=== PATIENT | female | born 1945 | race Caucasian/White ===

== ENCOUNTER → 2016-12-01 16:25 | Outpatient (CLI) | payer MEDICARE, OTHER ==
[2015-01-10 13:05] VITALS: BMI 34.1
[~2016-12-01 16:25] MED LIST: ACETAMINOPHEN500 M1 PO; AMBIEN10 MG PO; AMBIEN5 MG PO; ASPIRIN EC81 MG PO; ATIVAN1 MG PO; DURAGESIC1 PATCH .1 TRANSDERM; HYDROCODONE-APA1 TAB PO; LEVOXYL50 MCG PO; LOPRESSOR25 MG PO; MOBIC7.5 MG PO; NEURONTIN 300300 MG PO; NORVASC5 MG PO; PRILOSEC20 MG PO; PRINIVIL20 MG PO; ULTRAM50 MG PO; USTELL PO; VAGIFEM10 MCG; ZESTORETIC 20-1 EACH PO; ZOFRAN4 MG PO; ZOLOFT50 MG PO
== END | disposition home or self-care (01) ==
LOC: D.MAMMO 13:30
DX: Z12.31 Encounter for screening mammogram for malignant neoplasm of breast (principal)

== ENCOUNTER 2017-03-06 08:21 | Emergency (ER) | payer MEDICARE, OTHER ==
[2015-01-10 13:05] VITALS: BMI 34.1
[2017-03-06 08:53] LABS: APPEARANCE HAZY (CLEAR); COLOR ORANGE (YELLOW)
[2017-03-06 08:54] LABS: BACTERIA FEW /hpf (NONE SEEN); EPITHELIAL CELLS 0-5 /hpf (0-5)
== END 2017-03-06 09:10 | disposition home or self-care (01) ==
LOC: D.ER 08:21
PROVIDERS: Family Medicine
DX: N39.0 Urinary tract infection, site not specified (principal); I10 Essential (primary) hypertension

== ENCOUNTER → 2017-03-25 07:06 | Outpatient (CLI) | payer MEDICARE, OTHER ==
[2015-01-10 13:05] VITALS: BMI 34.1
== END | disposition home or self-care (01) ==
LOC: D.US 07:06
DX: E04.1 Nontoxic single thyroid nodule (principal)

== ENCOUNTER → 2017-05-10 06:00 | Outpatient (CLI) | payer MEDICARE, OTHER ==
[2015-01-10 13:05] VITALS: BMI 34.1
[2017-05-10 06:09] LABS: CREATININE - SERUM 0.7 mg/dL (0.6-1.3)
== END ==
LOC: D.LAB 05-09 11:18
PROVIDERS: Neurological Surgery
DX: Z01.812 Encounter for preprocedural laboratory examination (principal)

== ENCOUNTER → 2017-05-31 16:07 | Outpatient (CLI) | payer MEDICARE, OTHER ==
[2015-01-10 13:05] VITALS: BMI 34.1
== END | disposition home or self-care (01) ==
LOC: D.MAMMO 13:00
DX: N60.02 Solitary cyst of left breast (principal)

== ENCOUNTER → 2017-06-02 16:13 | Outpatient (CLI) | payer MEDICARE, OTHER ==
[2015-01-10 13:05] VITALS: BMI 34.1
[2017-06-02 16:28] LABS: BASOPHILS 0.5 % (0-2); EOSINOPHILS 1.9 % (0-7); HEMATOCRIT 37.8 % (36.0-48.0); HEMOGLOBIN 11.9 g/dL (12-16); IMMATURE GRANULOCYTES 0.2 % (0-5); LYMPHOCYTES 19.7 % (15-50); MCH 26.7 pg (26.0-34.0); MCHC 31.5 g/dL (31.0-37.0); MCV 84.9 fL (80.0-100.0); MEAN PLATELET VOLUME 11.9 fL (7.4-10.4); MONOCYTES 7.2 % (2-11); NEUTROPHILS 70.5 % (40-80); PLATELET COUNT 196 10x3/uL (130-400); RBC 4.45 10x6/uL (4.00-5.40); RDW 14.9 % (11.5-14.5); WBC 5.9 10x3/uL (4.8-10.8)
[2017-06-02 17:34] LABS: ERYTHROCYTE SEDIMENTATION RATE 12 mm/hr (0-30)
== END | disposition home or self-care (01) ==
LOC: D.LABREF 16:13
PROVIDERS: Orthopaedic Surgery
DX: M17.0 Bilateral primary osteoarthritis of knee (principal)

== ENCOUNTER → 2017-08-26 10:15 | Outpatient (CLI) | payer MEDICARE, OTHER ==
[2015-01-10 13:05] VITALS: BMI 34.1
== END | disposition home or self-care (01) ==
LOC: D.US 10:15
DX: R22.1 Localized swelling, mass and lump, neck (principal)

== ENCOUNTER → 2017-11-11 10:46 | Outpatient (CLI) | payer MEDICARE, OTHER ==
[2015-01-10 13:05] VITALS: BMI 34.1
== END | disposition home or self-care (01) ==
LOC: D.MRI 10:46
DX: S12.401A Unspecified nondisplaced fracture of fifth cervical vertebra, initial encounter for closed fracture (principal); X58.XXXA Exposure to other specified factors, initial encounter; Y93.89 Activity, other specified; Y92.89 Other specified places as the place of occurrence of the external cause

== ENCOUNTER 2017-12-18 10:24 | Emergency (ER) | payer MEDICARE, OTHER ==
[2015-01-10 13:05] VITALS: BMI 34.1
[2017-12-18 11:01] LABS: APPEARANCE TURBID (CLEAR); BILIRUBIN NEGATIVE (NEGATIVE); COLOR YELLOW (YELLOW); GLUCOSE NEGATIVE (NEGATIVE); KETONE NEGATIVE (NEGATIVE); NITRITE NEGATIVE (NEGATIVE); PROTEIN TRACE mg/dL (NEGATIVE); UROBILINOGEN NORMAL (NORMAL)
[2017-12-18 11:06] LABS: BACTERIA MANY /hpf (NONE SEEN); EPITHELIAL CELLS OCC /hpf (0-5); WHITE CELLS - URINE >50 /hpf (0-5)
[2017-12-18 11:34] LABS: BASOPHILS 0.3 % (0-2); EOSINOPHILS 2.9 % (0-7); HEMATOCRIT 30.9 % (36.0-48.0); HEMOGLOBIN 9.6 g/dL (12-16); IMMATURE GRANULOCYTES 0.3 % (0-5); LYMPHOCYTES 16.2 % (15-50); MCH 26.3 pg (26.0-34.0); MCHC 31.1 g/dL (31.0-37.0); MCV 84.7 fL (80.0-100.0); MONOCYTES 6.2 % (2-11); NEUTROPHILS 74.1 % (40-80); RBC 3.65 10x6/uL (4.00-5.40); RDW 15.2 % (11.5-14.5); WBC 7.3 10x3/uL (4.8-10.8)
[2017-12-18 11:35] LABS: PLATELET COUNT 266 10x3/uL (130-400)
== END 2017-12-18 12:19 | disposition home or self-care (01) ==
LOC: D.ER 10:24
PROVIDERS: Family Medicine; Nurse Practitioner Family
DX: N39.0 Urinary tract infection, site not specified (principal)

== ENCOUNTER → 2018-05-10 14:10 | Outpatient (CLI) | payer MEDICARE, OTHER ==
[2015-01-10 13:05] VITALS: BMI 34.1
[~2018-05-10 14:10] MED LIST changes: +CARDURA4 MG PO; +IPRAT-ALBUT 0.5-3 ML UPD; +OMNICEF300 MG PO; +PEPCID40 MG PO; +PREDNISONE10 MG PO
== END | disposition home or self-care (01) ==
LOC: D.US 05-08 10:30
DX: E04.1 Nontoxic single thyroid nodule (principal)

== ENCOUNTER 2018-06-08 16:35 | Inpatient (IN) | payer MEDICARE, OTHER ==
[~2018-06-08] VITALS: Ht 152.4 cm; Wt 83.2 kg
--- NOTE | ~2018-06-08 | MORECARE ---
CASE MANAGEMENT DISCHARGE SUMMARY PATIENT: SAMIR GUADALUPE UNIT: [id number] ADM DATE: 06/08/18 AGE: 72 : 43 SEX: F ROOM/BED: D.2224 AUTHOR: AYLIN,DOC PHYSICIAN: REFERRING PHYSICIAN: MERLIN RAMACHANDRAN DO DATE OF SERVICE: 06/11/18 Discharge Plan Patient Name: SAMIR GUADALUPE Facility: [facility]:[place] : 1945 Planned Disposition: Home Anticipated Discharge Date: 06/11/18 Discharge Date: 06/11/2018 Expected LOS: 3 Initial Reviewer: [id number] Initial Review Date: 06/08/2018 Generated: 06/11/18 2:17 pm Comments DCP- Discharge Planning Updated by [id number]: Chayo Rojo on 06/11/18 12:[address] LATE ENTRY 0845 CM MET WITH THE PATIENT AT THE BEDSIDE. SHE IS PLANNING DISCHARGE TO HOME TODAY ABOUT 1230 THIS AFTERNOON. SHE IS RETURNING TO HOME W/ HER . SHE HAS TRANSPORTATION. SHE HAS 2 STEPS TO ENTER HER WHICH HAS A RAIL. PATIENT WAS INDEPENDENT PRIOR TO ADMISSION. SHE HAS A CANE AND A WALKER THAT SHE USES SOMETIMES. SHE HAS A HISTORY OF BACK SURGERY. SHE HAS A SHOWER CHAIR W/ GRAB BARS IN THE SHOWER. SHE HAS A NEBULIZER ORDERED BY DR RAMACHANDRAN. SHE HAS NO PREFERRED PROVIDER. DELIVERY TO HER ROOM OR HOME IS ACCEPTABLE. SHE DENIES ANY HOME HEALTH OR COMMUNITY SERVICE NEEDS. CM EXPLAINED HOW TO OBTAIN IF SHE SHOULD FIND AFTER DISCHARGE THAT SHE WANTS SERVICES. PATIENT DENIES ANY ADDITIONAL DME NEEDS AND STATED DECLINED COMMUNITY AND HOME HEALTH NEEDS. TC TO [facility] THIS AM. REC CB FROM [facility]. DISCUSSED NEBULIZER. FAXED MD ORDERS FACE SHEET AND DISCHARGE SUMMARY. NEBULIZER WILL BE DELIVERED TO PATIENT HOME BETWEEN 4 AND 5 PM TODAY. DCPIA - Discharge Planning Initial Assessment Updated by [email or web address]: Chayo Rojo on 06/11/18 1:06 pm * Is the patient Alert and Oriented? Yes * How many steps to enter\exit or inside your home? 2 steps w/ * PCP DR RAMACHANDRAN * Pharmacy [facility]. IT IS CLOSED ON TUESDAY THEREFORE WILL USE [email or web address] [address]. * Preadmission Environment Home with Family * ADLs Independent * Equipment Cane Walker * Other Equipment DENIES ANY ADDITIONAL DME * List name and contact numbers for known caregivers / representatives who currently or will assist patient after discharge: SHERWIN GUADALUPE- [facility] [phone] * Verbal permission to speak to the caregivers and representatives has been obtained from the patient. No * Community resources currently utilized None * Please name any agencies selected above. N/A * Additional services required to return to the preadmission environment? No * Can the patient safely return to the preadmission environment? Yes * Has this patient been hospitalized within the prior 30 days at any hospital? No Last DP export: 06/11/18 12:10 p Patient Name: SAMIR GUADALUPE Page 44015 at 1317 All edits/amendments must be made on the electronic document DICTATION DATE: 06/11/181316 STRINGED INSTRUMENT REPAIRER: KALPESH 06/11/18 1317 RPT#: [id number] DC DATE:06/11/18 STATUS: DIS IN [facility] [address] [place] [address] END OF REPORT
--- NOTE | ~2018-06-08 | MORECARE ---
CASE MANAGEMENT DISCHARGE SUMMARY PATIENT: SAMIR GUADALUPE UNIT: [id number] ADM DATE: 06/08/18 AGE: 72 : 43 SEX: F ROOM/BED: D.2224 AUTHOR: AYLIN,DOC PHYSICIAN: REFERRING PHYSICIAN: MERLIN RAMACHANDRAN DO DATE OF SERVICE: 06/12/18 Discharge Plan Patient Name: SAMIR GUADALUPE Facility: [facility]:[place] : 1945 Planned Disposition: Home Anticipated Discharge Date: 06/11/18 Discharge Date: 06/11/2018 Expected LOS: 3 Initial Reviewer: [email or web address] Initial Review Date: 06/08/2018 Generated: 06/12/18 5:48 pm Comments DCP- Discharge Planning Updated by [id number]: Chayo Rojo on 06/11/18 12:[address] LATE ENTRY 0845 CM MET WITH THE PATIENT AT THE BEDSIDE. SHE IS PLANNING DISCHARGE TO HOME TODAY ABOUT 1230 THIS AFTERNOON. SHE IS RETURNING TO HOME W/ HER . SHE HAS TRANSPORTATION. SHE HAS 2 STEPS TO ENTER HER WHICH HAS A RAIL. PATIENT WAS INDEPENDENT PRIOR TO ADMISSION. SHE HAS A CANE AND A WALKER THAT SHE USES SOMETIMES. SHE HAS A HISTORY OF BACK SURGERY. SHE HAS A SHOWER CHAIR W/ GRAB BARS IN THE SHOWER. SHE HAS A NEBULIZER ORDERED BY DR RAMACHANDRAN. SHE HAS NO PREFERRED PROVIDER. DELIVERY TO HER ROOM OR HOME IS ACCEPTABLE. SHE DENIES ANY HOME HEALTH OR COMMUNITY SERVICE NEEDS. CM EXPLAINED HOW TO OBTAIN IF SHE SHOULD FIND AFTER DISCHARGE THAT SHE WANTS SERVICES. PATIENT DENIES ANY ADDITIONAL DME NEEDS AND STATED DECLINED COMMUNITY AND HOME HEALTH NEEDS. TC TO [facility] THIS AM. REC CB FROM [facility]. DISCUSSED NEBULIZER. FAXED MD ORDERS FACE SHEET AND DISCHARGE SUMMARY. NEBULIZER WILL BE DELIVERED TO PATIENT HOME BETWEEN 4 AND 5 PM TODAY. DCPIA - Discharge Planning Initial Assessment Updated by [email or web address]: Chayo Rojo on 06/11/18 1:06 pm * Is the patient Alert and Oriented? Yes * How many steps to enter\exit or inside your home? 2 steps w/ * PCP DR RAMACHANDRAN * Pharmacy [facility]. IT IS CLOSED ON TUESDAY THEREFORE WILL USE [employer] [facility] [address]. * Preadmission Environment Home with Family * ADLs Independent * Equipment Cane Walker * Other Equipment DENIES ANY ADDITIONAL DME * List name and contact numbers for known caregivers / representatives who currently or will assist patient after discharge: SHERWIN GUADALUPE- - [phone] * Verbal permission to speak to the caregivers and representatives has been obtained from the patient. No * Community resources currently utilized None * Please name any agencies selected above. N/A * Additional services required to return to the preadmission environment? No * Can the patient safely return to the preadmission environment? Yes * Has this patient been hospitalized within the prior 30 days at any hospital? No Coverage Notice Reviewer: [id number] - Chayo Rojo Notice Issued Date-Time: 06/11/2018 9:23 Notice Type: IM Discharge Notice Notice Delivered To: Patient Relationship to Patient: Orthotist Prosthetist Name: Delivery Method: HAND - Hand Delivered Rosangela Days: Prior Verbal Notification: Recipient Understood Notice: Yes Recipient Signature: Yes Med Rec Note Co-signed by Attending: Coverage Notice Comment: DISCUSSED DISCHARGE IMM. PATIENT READ INFORMATION NOTICE. SHE HAD NO QUESTIONS. STATED SHE IS READY TO GO HOME. SIGNATURE OBTAINED. COPY TO THE PATIENT. SIGNED COPY TO HARD COVER CHART. Last DP export: 06/11/18 12:17 p Patient Name: SAMIR GUADALUPE Page 49341 at 1648 All edits/amendments must be made on the electronic document DICTATION DATE: 06/12/181647 SPEECH LANGUAGE PATHOLOGIST PRN: KALPESH 06/12/181647 RPT#: [id number] DC DATE:06/11/18 STATUS: DIS IN [facility] [address] [place] [address] END OF REPORT
--- NOTE | ~2018-06-08 | MORECARE ---
CASE MANAGEMENT DISCHARGE SUMMARY PATIENT: SAMIR GUADALUPE UNIT: [id number] ADM DATE: 06/08/18 AGE: 72 : 41 SEX: F ROOM/BED: D.2224 AUTHOR: MYRNA VIERA PHYSICIAN: REFERRING PHYSICIAN: MERLIN RAMACHANDRAN DO DATE OF SERVICE: 06/11/18 Discharge Plan Patient Name: SAMIR GUADALUPE Facility: [facility]:[place] : 1945 Planned Disposition: Home Anticipated Discharge Date: 06/11/18 Discharge Date: 06/11/2018 Expected LOS: 3 Initial Reviewer: [id number] Initial Review Date: 06/08/2018 Generated: 06/11/18 2:10 pm DCPIA - Discharge Planning Initial Assessment Updated by [id number]: Chayo Rojo on 06/11/18 1:06 pm * Is the patient Alert and Oriented? Yes * How many steps to enter\exit or inside your home? 2 steps w/ * PCP DR RAMACHANDRAN * Pharmacy [facility]. IT IS CLOSED ON TUESDAY THEREFORE WILL USE [facility] [address]. * Preadmission Environment Home with Family * ADLs Independent * Equipment Cane Walker * Other Equipment DENIES ANY ADDITIONAL DME * List name and contact numbers for known caregivers / representatives who currently or will assist patient after discharge: SHERWIN GUADALUPE- [facility]- [phone] * Verbal permission to speak to the caregivers and representatives has been obtained from the patient. No * Community resources currently utilized None * Please name any agencies selected above. N/A * Additional services required to return to the preadmission environment? No * Can the patient safely return to the preadmission environment? Yes * Has this patient been hospitalized within the prior 30 days at any hospital? No Last DP export: 06/11/18 12:03 p Patient Name: SAMIR GUADALUPE Page 55875 at 1310 All edits/amendments must be made on the electronic document DICTATION DATE: 06/11/18 1310 PERMIT TECHNICIAN: KALPESH 06/11/18 1310 RPT#: [id number] DC DATE:06/11/18 STATUS: DIS IN [facility] [address] [place] [address] END OF REPORT
--- NOTE | ~2018-06-08 | MORECARE ---
CASE MANAGEMENT DISCHARGE SUMMARY PATIENT: SAMIR GUADALUPE UNIT: [id number] ADM DATE: 06/08/18 AGE: 72 : 43 SEX: F ROOM/BED: D.2224 AUTHOR: MYRNA VIERA PHYSICIAN: REFERRING PHYSICIAN: MERLIN RAMACHANDRAN DO DATE OF SERVICE: 06/11/18 Discharge Plan Patient Name: SAMIR GUADALUPE Facility: [facility]:[place] : 1945 Planned Disposition: Home Anticipated Discharge Date: 06/11/18 Discharge Date: Expected LOS: 3 Initial Reviewer: [email or web address] Initial Review Date: 06/08/2018 Generated: 06/11/18 2:03 pm Patient Name: SAMIR GUADALUPE Page 83252 at 1304 All edits/amendments must be made on the electronic document DICTATION DATE: 06/11/18 1303 PSYCHOLOGY DEPARTMENT CHAIR: KALPESH 06/11/18 1303 RPT#: [id number] DC DATE: STATUS: ADM IN [facility] [address] [place] [address] END OF REPORT
[~2018-06-08 16:35] MED LIST changes: -CARDURA4 MG PO; -IPRAT-ALBUT 0.5-3 ML UPD; -OMNICEF300 MG PO; -PEPCID40 MG PO; -PREDNISONE10 MG PO
[2018-06-08 17:21] LABS: BASOPHILS 0.2 % (0-2); EOSINOPHILS 0.2 % (0-7); HEMATOCRIT 36.2 % (36.0-48.0); HEMOGLOBIN 11.6 g/dL (12-16); IMMATURE GRANULOCYTES 0.2 % (0-5); LYMPHOCYTES 36.5 % (15-50); MCH 26.5 pg (26.0-34.0); MCV 82.6 fL (80.0-100.0); MEAN PLATELET VOLUME 10.8 fL (7.4-10.4); MONOCYTES 7.6 % (2-11); NEUTROPHILS 55.3 % (40-80); RBC 4.38 10x6/uL (4.00-5.40); RDW 14.5 % (11.5-14.5); WBC 6.5 10x3/uL (4.8-10.8)
[2018-06-08 17:22] LABS: PLATELET COUNT 173 10x3/uL (130-400)
[2018-06-08 17:39] LABS: ALBUMIN 3.6 g/dL (3.4-5.0); ANION GAP 14.7 mmol/L (8-16); BILIRUBIN - TOTAL 0.19 mg/dL (0.2-1.3); CALCIUM 9.2 mg/dL (8.5-10.1); CARBON DIOXIDE 27.8 mmol/L (21.0-32.0); CREATININE - SERUM 0.9 mg/dL (0.6-1.3); POTASSIUM - SERUM 3.5 mmol/L (3.5-5.1); PROTEIN - SERUM 7.4 g/dL (6.4-8.2)
[2018-06-08 18:44] VITALS: BP 102/71; Ht 152.4 cm; Wt 83.2 kg
[2018-06-08 19:53] LABS: APPEARANCE CLEAR (CLEAR); BILIRUBIN NEGATIVE (NEGATIVE); COLOR YELLOW (YELLOW); GLUCOSE NEGATIVE (NEGATIVE); KETONE NEGATIVE (NEGATIVE); NITRITE NEGATIVE (NEGATIVE); PROTEIN TRACE mg/dL (NEGATIVE); UROBILINOGEN NORMAL (NORMAL)
[2018-06-08 19:55] LABS: BACTERIA FEW /hpf (NONE SEEN); EPITHELIAL CELLS 0-5 /hpf (0-5); RED CELLS - URINE 0-5 /hpf (0-5)
[2018-06-08 21:35] VITALS: BP 153/98
[2018-06-09 04:44] LABS: BASOPHILS 0.4 % (0-2); EOSINOPHILS 0.6 % (0-7); HEMATOCRIT 32.3 % (36.0-48.0); HEMOGLOBIN 10.1 g/dL (12-16); LYMPHOCYTES 36.3 % (15-50); MCH 25.9 pg (26.0-34.0); MCHC 31.3 g/dL (31.0-37.0); MCV 82.8 fL (80.0-100.0); MEAN PLATELET VOLUME 11.4 fL (7.4-10.4); MONOCYTES 9.8 % (2-11); NEUTROPHILS 52.9 % (40-80); PLATELET COUNT 173 10x3/uL (130-400); RDW 14.4 % (11.5-14.5); WBC 4.9 10x3/uL (4.8-10.8)
[2018-06-09 05:11] LABS: ALKALINE PHOSPHATASE 50 U/L (46-116); ALT (SGPT) 16 U/L (10-68); CALC OSMOLALITY 289 mosm/kg (275-300); CALCIUM 8.8 mg/dL (8.5-10.1); CARBON DIOXIDE 28.8 mmol/L (21.0-32.0); CHLORIDE - SERUM 107 mmol/L (98-107); GLUCOSE 113 mg/dL (74-106); POTASSIUM - SERUM 3.8 mmol/L (3.5-5.1); PROTEIN - SERUM 6.2 g/dL (6.4-8.2); SODIUM 143 mmol/L (136-145); UREA NITROGEN 23 mg/dL (7-18)
[2018-06-09 05:12] VITALS: BP 134/95
[2018-06-09 05:12] LABS: BILIRUBIN - TOTAL 0.08 mg/dL (0.2-1.3); CREATININE - SERUM 0.6 mg/dL (0.6-1.3); eGFR NON AFRICAN AMERICAN > 90 mL/min (90-120)
[2018-06-09 08:47] VITALS: BP 185/69
[2018-06-09] MEDS ORDERED: CARDURA4 MG PO (10:20)
[2018-06-09] MEDS ORDERED: PEPCID40 MG PO (10:22)
[2018-06-09 12:46] VITALS: BP 176/83
[2018-06-09 16:27] VITALS: BP 147/72
[2018-06-09 21:26] VITALS: BP 118/51
[2018-06-10 04:51] VITALS: BP 179/78
[2018-06-10 06:00] LABS: BASOPHILS 0.2 % (0-2); EOSINOPHILS 2.8 % (0-7); HEMATOCRIT 31.7 % (36.0-48.0); MCHC 31.5 g/dL (31.0-37.0); MCV 82.6 fL (80.0-100.0); MONOCYTES 8.5 % (2-11); NEUTROPHILS 51.5 % (40-80); PLATELET COUNT 165 10x3/uL (130-400); RBC 3.84 10x6/uL (4.00-5.40); RDW 14.4 % (11.5-14.5); WBC 4.2 10x3/uL (4.8-10.8)
[2018-06-10 06:29] LABS: ALBUMIN 2.8 g/dL (3.4-5.0); ALKALINE PHOSPHATASE 45 U/L (46-116); ALT (SGPT) 15 U/L (10-68); CALC OSMOLALITY 292 mosm/kg (275-300); CALCIUM 8.6 mg/dL (8.5-10.1); CARBON DIOXIDE 27.6 mmol/L (21.0-32.0); CHLORIDE - SERUM 110 mmol/L (98-107); CREATININE - SERUM 0.6 mg/dL (0.6-1.3); GLUCOSE 96 mg/dL (74-106); POTASSIUM - SERUM 4.2 mmol/L (3.5-5.1); PROTEIN - SERUM 5.8 g/dL (6.4-8.2); SODIUM 145 mmol/L (136-145); UREA NITROGEN 24 mg/dL (7-18); eGFR NON AFRICAN AMERICAN > 90 mL/min (90-120)
[2018-06-10 09:35] VITALS: BP 180/75
[2018-06-10 16:30] VITALS: BP 134/65
[2018-06-10 20:39] VITALS: BP 174/71
[2018-06-11 00:20] VITALS: BP 183/74
[2018-06-11 05:02] VITALS: BP 155/77
[2018-06-11 06:40] LABS: BASOPHILS 0 % (0-2); EOSINOPHILS 0 % (0-7); HEMOGLOBIN 11.1 g/dL (12-16); IMMATURE GRANULOCYTES 0.5 % (0-5); LYMPHOCYTES 14.3 % (15-50); MCH 26.1 pg (26.0-34.0); MCHC 31.7 g/dL (31.0-37.0); MCV 82.2 fL (80.0-100.0); MEAN PLATELET VOLUME 11.8 fL (7.4-10.4); MONOCYTES 4.8 % (2-11); NEUTROPHILS 80.4 % (40-80); PLATELET COUNT 183 10x3/uL (130-400); RBC 4.26 10x6/uL (4.00-5.40); RDW 14.3 % (11.5-14.5)
[2018-06-11 06:46] LABS: WBC 6.1 10x3/uL (4.8-10.8)
[2018-06-11 07:03] LABS: ALBUMIN 2.9 g/dL (3.4-5.0); ALKALINE PHOSPHATASE 52 U/L (46-116); ALT (SGPT) 15 U/L (10-68); BILIRUBIN - TOTAL 0.17 mg/dL (0.2-1.3); CALC OSMOLALITY 286 mosm/kg (275-300); CALCIUM 9.3 mg/dL (8.5-10.1); CARBON DIOXIDE 28.2 mmol/L (21.0-32.0); CHLORIDE - SERUM 105 mmol/L (98-107); CREATININE - SERUM 0.6 mg/dL (0.6-1.3); GLUCOSE 119 mg/dL (74-106); POTASSIUM - SERUM 4.3 mmol/L (3.5-5.1); PROTEIN - SERUM 6.4 g/dL (6.4-8.2); SODIUM 142 mmol/L (136-145); UREA NITROGEN 22 mg/dL (7-18); eGFR NON AFRICAN AMERICAN > 90 mL/min (90-120)
[2018-06-11] MEDS ORDERED: OMNICEF300 MG PO (08:35)
[2018-06-11] MEDS ORDERED: PREDNISONE10 MG PO (08:36)
[2018-06-11] MEDS ORDERED: IPRAT-ALBUT 0.5-3 ML UPD (08:37)
[2018-06-11 09:01] VITALS: BP 136/66
== END 2018-06-11 13:06 | disposition home or self-care (01) | DRG 192 ==
LOC: D.MS 16:35
PROVIDERS: Family Medicine
DX: J44.1 Chronic obstructive pulmonary disease with (acute) exacerbation (principal); R53.1 Weakness; I10 Essential (primary) hypertension

== ENCOUNTER → 2018-08-15 13:46 | Outpatient (CLI) | payer MEDICARE, BC ==
[2018-06-08 18:44] VITALS: BMI 35.8
[~2018-08-15 13:46] MED LIST changes: +CARDURA4 MG PO; +IPRAT-ALBUT 0.5-3 ML UPD; +OMNICEF300 MG PO; +PEPCID40 MG PO; +PREDNISONE10 MG PO
== END | disposition home or self-care (01) ==
LOC: D.CT 13:30
DX: R05 Cough (principal)

== ENCOUNTER → 2018-08-24 16:32 | Outpatient (CLI) | payer MEDICARE, BC ==
[2018-06-08 18:44] VITALS: BMI 35.8
[2018-08-28 13:13] LABS: ANGIOTENSIN CONVERTING ENZYME < 15 U/L (14-82)
[2018-08-29 20:07] LABS: FUNGAL - ASP FLAVUS Negative (Neg:<1:1); FUNGAL - ASP NIGER Negative (Neg:<1:1); FUNGAL - ASPER FUMIGATUS Negative (Neg:<1:1)
== END | disposition home or self-care (01) ==
LOC: D.LABREF 16:32
PROVIDERS: Internal Medicine Pulmonary Disease
DX: R91.1 Solitary pulmonary nodule (principal)

== ENCOUNTER → 2018-09-15 20:00 | Outpatient (CLI) | payer MEDICARE, BC ==
[2018-06-08 18:44] VITALS: BMI 35.8
== END | disposition home or self-care (01) ==
LOC: D.MAMMO 09-01 14:30
DX: Z12.31 Encounter for screening mammogram for malignant neoplasm of breast (principal)

== ENCOUNTER → 2018-12-08 12:17 | Outpatient (CLI) | payer MEDICARE, BC ==
[2018-06-08 18:44] VITALS: BMI 35.8
== END | disposition home or self-care (01) ==
LOC: D.RT 11-09 10:00 → D.CT 11-09 11:00 → D.RT 12:17
PROVIDERS: ATTEND Internal Medicine Pulmonary Disease
DX: J44.9 Chronic obstructive pulmonary disease, unspecified (principal)

== ENCOUNTER → 2018-12-27 12:32 | Outpatient (CLI) | payer MEDICARE, BC ==
[2018-06-08 18:44] VITALS: BMI 35.8
== END | disposition home or self-care (01) ==
LOC: D.US 12-26 15:00
PROVIDERS: ATTEND Family Medicine
DX: E04.1 Nontoxic single thyroid nodule (principal)

== ENCOUNTER → 2019-05-15 13:05 | Outpatient (CLI) | payer MEDICARE, BC ==
[2018-06-08 18:44] VITALS: BMI 35.8
== END | disposition home or self-care (01) ==
LOC: D.CT 04-12 09:00
PROVIDERS: ATTEND Internal Medicine Pulmonary Disease
DX: E04.1 Nontoxic single thyroid nodule (principal)

== ENCOUNTER 2019-08-11 15:32 | Observation (INO) | payer MEDICARE, BC ==
[~2019-08-11] VITALS: Ht 152.4 cm; Wt 81.8 kg
[2019-08-11] MEDS ORDERED: PERCOCET 7.5/321 TAB PO (15:57)
[2019-08-11 16:45] VITALS: BP 151/56
[2019-08-11 16:49] VITALS: BP 151/59; Ht 152.4 cm; Wt 81.8 kg
[2019-08-11 18:55] LABS: BASOPHILS 0.2 % (0-2); EOSINOPHILS 5.6 % (0-7); HEMATOCRIT 28.6 % (36.0-48.0); HEMOGLOBIN 8.8 g/dL (12-16); LYMPHOCYTES 19.6 % (15-50); MCH 25.7 pg (26.0-34.0); MCHC 30.8 g/dL (31.0-37.0); MCV 83.6 fL (80.0-100.0); MEAN PLATELET VOLUME 9.9 fL (7.4-10.4); NEUTROPHILS 64.6 % (40-80); PLATELET COUNT 238 10x3/uL (130-400); RBC 3.42 10x6/uL (4.00-5.40); RDW 15.6 % (11.5-14.5); WBC 5.7 10x3/uL (4.8-10.8)
[2019-08-11 19:02] LABS: INR 1.02 (0.85-1.17); PROTIME 12.9 SECONDS (11.6-15.0)
--- NOTE | 2019-08-11 19:02 | NUR ---
PATIENT RESTING IN BED AND DENIES NEEDS AT THIS TIME. BED IN LOWEST POSITION AND CALL LIGHT WITHIN REACH. PATIENT DENIES NEEDS AT THIS TIME. BED IN LOWEST POSITION AND CALL LIGHT WITHIN REACH. ENCOURAGED THE PATIENT TO CALL IF SHE HAS NEEDS. WILL CONTINUE TO MONITOR.
[2019-08-11 19:03] LABS: APTT 27.5 SECONDS (22.8-39.4)
[2019-08-11 19:07] LABS: ALBUMIN 2.5 g/dL (3.4-5.0); ALKALINE PHOSPHATASE 53 U/L (46-116); ALT (SGPT) 15 U/L (10-68); CALC OSMOLALITY 288 mosm/kg (275-300); CALCIUM 8.3 mg/dL (8.5-10.1); CARBON DIOXIDE 31.9 mmol/L (21.0-32.0); CHLORIDE - SERUM 107 mmol/L (98-107); CREATININE - SERUM 0.7 mg/dL (0.6-1.3); GLUCOSE 95 mg/dL (74-106); MAGNESIUM - SERUM 2.2 mg/dL (1.8-2.4); POTASSIUM - SERUM 3.8 mmol/L (3.5-5.1); PROTEIN - SERUM 5.7 g/dL (6.4-8.2); SODIUM 144 mmol/L (136-145); UREA NITROGEN 17 mg/dL (7-18); eGFR NON AFRICAN AMERICAN 86 mL/min (90-120)
--- NOTE | 2019-08-11 19:19 | MORECARE ---
CASE MANAGEMENT DISCHARGE SUMMARY PATIENT: SAMIR GUADALUPE UNIT: [id number] ADM DATE: 08/11/19 AGE: 73 : 43 SEX: F ROOM/BED: D.2213 AUTHOR: MYRNA VIERA PHYSICIAN: REFERRING PHYSICIAN: MERLIN RAMACHANDRAN DO DATE OF SERVICE: 08/11/19 Discharge Plan Patient Name: SAMIR GUADALUPE [facility] : 1945 Planned Disposition: Inpatient Rehab Facility Anticipated Discharge Date: 08/12/19 Discharge Date: Expected LOS: 1 Initial Reviewer: [email or web address] Initial Review Date: 08/11/2019 Generated: 08/11/19 8:18 pm Patient Name: SAMIR GUADALUPE Page 14314 at 1919 All edits/amendments must be made on the electronic document DICTATION DATE: 08/11/191917 PHYSIOTHERAPIST'S ASSISTANT: KALPESH 08/11/191917 RPT#: [id number] DC DATE: STATUS: ADM IN [facility] [address] [place] [address] END OF REPORT
--- NOTE | 2019-08-11 19:25 | MORECARE ---
CASE MANAGEMENT DISCHARGE SUMMARY PATIENT: SAMIR FUENTES UNIT: [id number] ADM DATE: 08/11/19 AGE: 73 : 43 SEX: F ROOM/BED: D.2213 AUTHOR: MYRNA VIERA PHYSICIAN: REFERRING PHYSICIAN: MERLIN RAMACHANDRAN DO DATE OF SERVICE: 08/11/19 Discharge Plan Patient Name: SAMIR FUENTES Facility: [facility]:[place] : 1945 Planned Disposition: Inpatient Rehab Facility Anticipated Discharge Date: 08/12/19 Discharge Date: Expected LOS: 1 Initial Reviewer: [email or web address] Initial Review Date: 08/11/2019 Generated: 08/11/19 8:25 pm DCPIA - Discharge Planning Initial Assessment Updated by [email or web address]: Kennedi Keita on 08/11/19 7:21 pm * Is the patient Alert and Oriented? Yes * How many steps to enter\exit or inside your home? two * PCP Dr. Ramachandran * Pharmacy [facility] * Preadmission Environment Home with Family * ADLs Partial Dependent * Partial ADLs (Assistance needed) Ambulation Bathing Dressing Transfers * Equipment Bedside Commode Nebulizer Rolling Walker Wheelchair * List name and contact numbers for known caregivers / representatives who currently or will assist patient after discharge: Mike Fuentes - [facility] - [phone] * Verbal permission to speak to the caregivers and representatives has been obtained from the patient. Yes * Community resources currently utilized Home Health * Please name any agencies selected above. [facility] * Additional services required to return to the preadmission environment? Yes * Can the patient safely return to the preadmission environment? No * Has this patient been hospitalized within the prior 30 days at any hospital? Yes Last DP export: 08/11/19 6:19 pm Patient Name: SAMIR FUENTES Page 32012 at 1924 All edits/amendments must be made on the electronic document DICTATION DATE: 08/11/191924 FARMWORKER TURKEY FARM: KALPESH 08/11/191924 RPT#: [id number] DC DATE: STATUS: ADM IN [facility] [address] [place] [address] END OF REPORT
[2019-08-11 20:00] VITALS: BP 140/57
--- NOTE | 2019-08-11 20:46 | NUR ---
PATIENT RESTING IN BED WITH DAUGHTER AT BEDSIDE. REVIEWED AND ADMINISTERED PATIENT'S MEDS PER ORDERS. PATIENT ALSO REQUESTED A PAIN PILL AT THIS TIME. PATIENT C/O BRACE MAKING HER LEG "HOT". PATIENT'S RANDI BANDAGE WAS ALSO SOILED AND STRETCHED OUT. I PLACED A NEW RANDI BANDAGE AND GAVE THE PATIENT A FRESH ICE PACK. PATIENT DENIES OTHER NEEDS AT THIS TIME.
[2019-08-11 23:30] VITALS: BP 146/52
[2019-08-12 04:00] VITALS: BP 137/58
[2019-08-12 05:25] LABS: BASOPHILS 0.4 % (0-2); EOSINOPHILS 5.2 % (0-7); HEMATOCRIT 26.3 % (36.0-48.0); HEMOGLOBIN 8.1 g/dL (12-16); IMMATURE GRANULOCYTES 0.2 % (0-5); LYMPHOCYTES 22.6 % (15-50); MCH 25.6 pg (26.0-34.0); MCHC 30.8 g/dL (31.0-37.0); MCV 83.2 fL (80.0-100.0); MEAN PLATELET VOLUME 10.2 fL (7.4-10.4); MONOCYTES 8.4 % (2-11); NEUTROPHILS 63.2 % (40-80); PLATELET COUNT 237 10x3/uL (130-400); RBC 3.16 10x6/uL (4.00-5.40); RDW 15.6 % (11.5-14.5)
[2019-08-12 05:59] LABS: CALC OSMOLALITY 292 mosm/kg (275-300); CALCIUM 8.2 mg/dL (8.5-10.1); CHLORIDE - SERUM 111 mmol/L (98-107); CREATININE - SERUM 0.5 mg/dL (0.6-1.3); GLUCOSE 102 mg/dL (74-106); MAGNESIUM - SERUM 2.3 mg/dL (1.8-2.4); POTASSIUM - SERUM 3.7 mmol/L (3.5-5.1); SODIUM 146 mmol/L (136-145); UREA NITROGEN 17 mg/dL (7-18); eGFR NON AFRICAN AMERICAN > 90 mL/min (90-120)
--- NOTE | 2019-08-12 09:00 | NUR ---
ALERT AND ORIENTED X4 WITH ASSSIT X1 TO BSC WITH SPLINT NOTED TO LLE. STOOL SPECEMIN OBTAINED WITH HYDROCODONE GIVEN FOR PAIN #8. ENCOURAGED INCENTIVE SPIROMETER WITH LUNGS CTA AND ABDOMEN SOFT WITH BS NOTED. PT EWARS SCD'S WHLE IN BED. DRESSING DRY AND INTACT TO LEFT KNEE WITH SPLINT. IV TO RT. WRIST INTACT WITH NO S/S OF INFECTION NOTED. ENCOURAGED TO USE CALL LIGHT FOR ASSSIT.
[2019-08-12 09:37] VITALS: BP 148/56
--- NOTE | 2019-08-12 09:43 | NUR ---
REHAB PRESCREENING Rehab referral received and chart reviewed. PT/OT/ST has been ordered but not completed as of yet. Rehab will continue to follow this patient for work up and evaluations in order to assess admission criteria. Thank you for this referral! Eula Barnett, LOCOMOTIVE ELECTRICIAN Rehab PD
[2019-08-12 12:05] VITALS: BP 120/54
--- NOTE | 2019-08-12 14:36 | MORECARE ---
CASE MANAGEMENT DISCHARGE SUMMARY PATIENT: SAMIR FUENTES UNIT: [id number] ADM DATE: 08/11/19 AGE: 73 : 43 SEX: F ROOM/BED: D.2213 AUTHOR: MYRNA VIERA PHYSICIAN: REFERRING PHYSICIAN: MERLIN RAMACHANDRAN DO DATE OF SERVICE: 08/12/19 Discharge Plan Patient Name: SAMIR FUENTES Facility: [facility]:[place] : 1945 Planned Disposition: Inpatient Rehab Facility Anticipated Discharge Date: 08/12/19 Discharge Date: Expected LOS: 1 Initial Reviewer: [email or web address] Initial Review Date: 08/11/2019 Generated: 08/12/19 3:36 pm Comments DCP- Discharge Planning Updated by [email or web address]: Kennedi Keita on 08/12/19 1:[address] DC PLANNING: ACCEPTED TO REHAB FOR TODAY. CM SPOKE TO SUNITA WHO STATED PATIENT MEETS CRITERIA FOR ADMISSION. DR. MORALES HAS BEEN NOTIFIED AND WILLING TO ACCEPT PATIENT TODAY. CRISTIAN WILL BE COMING TO THE HOSPITAL TO COMPLETE THE SCREEN. ONCE HE IS FINISHED WITH THE SCREEN HE WILL CALL WITH A ROOM NUMBER. KENNEDI KEITA RN, CCM Appended by Kennedi Keita on 08/12/2019 14:34 SEISMIC PROSPECTING SUPERVISOR: CM NOTIFIED RANDI ANDRADE OF THE ACCEPTANCE AND REHAB ADMISSION FOR TODAY. DCP- Discharge Planning Updated by [email or web address]: Kennedi Keita on 08/11/19 6:[address] DC PLAN: GLOBE MOUNTER Inpatient rehab. ANTICIPATED DC NEEDS: Rehab. CM met with patient to complete initial dc planning assessment. CM educated patient on the CM role and verbal consent given by patient to complete assessment. CM verified patient's address, phone number, and emergency contact phone numbers. Patient lives at home with her . She reports she is POD4 left knee surgery. She had her surgery in [place]. She was discharged home with [facility]. The therapist made a visit and notified Dr. Ramachandran that the patient was not able to manage at home and so the patient was sent to the hospital for admission into the Rehab. She reports her is not able to left her. DAYA presented, explained, and signed by the patient for [facility] Re[facility] and [facility]. Signed form placed in chart and also left with patient. Sunita with [facility] stated she would evaluate the patient for admission on Tuesday. CM will continue to follow and will assist as needed with dc plans/needs. Kennedi Keita RN, JOSE DCPIA - Discharge Planning Initial Assessment Updated by [email or web address]: Kennedi Keita on 08/11/19 7:21 pm * Is the patient Alert and Oriented? Yes * How many steps to enter\exit or inside your home? two * PCP Dr. Ramachandran * Pharmacy [facility] * Preadmission Environment Home with Family * ADLs Partial Dependent * Partial ADLs (Assistance needed) Ambulation Bathing Dressing Transfers * Equipment Bedside Commode Nebulizer Rolling Walker Wheelchair * List name and contact numbers for known caregivers / representatives who currently or will assist patient after discharge: Mike Fuentes - [facility] - [phone] * Verbal permission to speak to the caregivers and representatives has been obtained from the patient. Yes * Community resources currently utilized Home Health * Please name any agencies selected above. [facility] * Additional services required to return to the preadmission environment? Yes * Can the patient safely return to the preadmission environment? No * Has this patient been hospitalized within the prior 30 days at any hospital? Yes Coverage Notice Reviewer: [id number] Cam Keita Notice Issued Date-Time: 08/11/2019 19:25 Notice Type: Patient Choice Letter Notice Delivered To: Patient Relationship to Patient: Housekeeping Associate Name: Delivery Method: HAND - Hand Delivered Rosangela Days: Prior Verbal Notification: Recipient Understood Notice: Yes Recipient Signature: Yes Med Rec Note Co-signed by Attending: Coverage Notice Comment: DAYA Signed for [facility] Inpatient Rehab and [facility] (Current provider). Reviewer: [email or web address] Cam Keita Notice Issued Date-Time: 08/11/2019 18:55 Notice Type: Medicare Outpatient Observation Notice Notice Delivered To: Patient Relationship to Patient: Housekeeping Associate Name: Delivery Method: HAND - Hand Delivered Rosangela Days: Prior Verbal Notification: Recipient Understood Notice: Yes Recipient Signature: Yes Med Rec Note Co-signed by Attending: Coverage Notice Comment: SURESH delivered, explained, signed by the patient, and placed in the chart. Signed form also left with patient. Kennedi Keita RN , CCM Last DP export: 08/11/19 6:25 pm Patient Name: Emiliana FUENTESMICHELLE Page 57237 at 1436 All edits/amendments must be made on the electronic document DICTATION DATE: 08/12/191435 TECHNICAL CUSTOMER SUPPORT SPECIALIST: KALPESH 08/12/191435 RPT#: [id number] DC DATE: STATUS: ADM IN [facility] [address] [place] [address] END OF REPORT
[2019-08-12 14:49] LABS: APPEARANCE CLEAR (CLEAR); BILIRUBIN NEGATIVE (NEGATIVE); COLOR YELLOW (YELLOW); GLUCOSE NEGATIVE (NEGATIVE); KETONE NEGATIVE (NEGATIVE); NITRITE NEGATIVE (NEGATIVE); PROTEIN NEGATIVE (NEGATIVE); UROBILINOGEN NORMAL (NORMAL)
[2019-08-12] MEDS ORDERED: PROTONIX40 MG PO (15:09)
[2019-08-12] MEDS ORDERED: HCTZ25 MG PO (15:09)
[2019-08-12] MEDS ORDERED: BAYER ASPIRIN325 MG PO (15:11)
--- NOTE | 2019-08-12 18:19 | NUR ---
PT DISCHARGED TO REHAB WITH REPORT CALLED TO TORSTEN ANDRADE AND STABLE AT TIME OF DEPARTURE VIA W/C.
--- NOTE | 2019-08-12 19:47 | MORECARE ---
CASE MANAGEMENT DISCHARGE SUMMARY PATIENT: SAMIR FUENTES UNIT: [id number] ADM DATE: 08/11/19 AGE: 73 : 43 SEX: F ROOM/BED: D.2213 AUTHOR: MYRNA VIERA PHYSICIAN: REFERRING PHYSICIAN: MERLIN RAMACHANDRAN DO DATE OF SERVICE: 08/12/19 Discharge Plan Patient Name: SAMIR FUENTES Facility: [facility]:[place] : 1945 Planned Disposition: Inpatient Rehab Facility Anticipated Discharge Date: 08/12/19 Discharge Date: 08/12/2019 Expected LOS: 1 Initial Reviewer: [email or web address] Initial Review Date: 08/11/2019 Generated: 08/12/19 8:46 pm Comments DCP- Discharge Planning Updated by [id number]: Kennedi Keita on 08/12/19 1:[address] DC PLANNING: ACCEPTED TO REHAB FOR TODAY. CM SPOKE TO SUNITA WHO STATED PATIENT MEETS CRITERIA FOR ADMISSION. DR. MORALES HAS BEEN NOTIFIED AND WILLING TO ACCEPT PATIENT TODAY. CRISTIAN WILL BE COMING TO THE HOSPITAL TO COMPLETE THE SCREEN. ONCE HE IS FINISHED WITH THE SCREEN HE WILL CALL WITH A ROOM NUMBER. KENNEDI KEITA RN, CCM Appended by Kennedi Keita on 08/12/2019 14:34 RECYCLE COORDINATOR: CM NOTIFIED RANDI ANDRADE OF THE ACCEPTANCE AND REHAB ADMISSION FOR TODAY. DCP- Discharge Planning Updated by [email or web address]: Kennedi Keita on 08/11/19 6:[address] DC PLAN: PLANT EQUIPMENT ENGINEER Inpatient rehab. ANTICIPATED DC NEEDS: Rehab. CM met with patient to complete initial dc planning assessment. CM educated patient on the CM role and verbal consent given by patient to complete assessment. CM verified patient's address, phone number, and emergency contact phone numbers. Patient lives at home with her . She reports she is POD4 left knee surgery. She had her surgery in [place]. She was discharged home with [facility]. The therapist made a visit and notified Dr. Ramachandran that the patient was not able to manage at home and so the patient was sent to the hospital for admission into the Rehab. She reports her is not able to left her. DAYA presented, explained, and signed by the patient for PLANT EQUIPMENT ENGINEER IN Rehab and [facility]. Signed form placed in chart and also left with patient. Sunita with [facility] stated she would evaluate the patient for admission on Tuesday. CM will continue to follow and will assist as needed with dc plans/needs. Kennedi Keita RN, CCM DCPIA - Discharge Planning Initial Assessment Updated by [email or web address]: Kennedi Keita on 08/11/19 7:21 pm * Is the patient Alert and Oriented? Yes * How many steps to enter\exit or inside your home? two * PCP Dr. Ramachandran * Pharmacy [facility] * Preadmission Environment Home with Family * ADLs Partial Dependent * Partial ADLs (Assistance needed) Ambulation Bathing Dressing Transfers * Equipment Bedside Commode Nebulizer Rolling Walker Wheelchair * List name and contact numbers for known caregivers / representatives who currently or will assist patient after discharge: Mike Fuentes - [facility] - [phone] * Verbal permission to speak to the caregivers and representatives has been obtained from the patient. Yes * Community resources currently utilized Home Health * Please name any agencies selected above. [facility] * Additional services required to return to the preadmission environment? Yes * Can the patient safely return to the preadmission environment? No * Has this patient been hospitalized within the prior 30 days at any hospital? Yes Coverage Notice Reviewer: [id number] Cam Keita Notice Issued Date-Time: 08/11/2019 19:25 Notice Type: Patient Choice Letter Notice Delivered To: Patient Relationship to Patient: Electrolysis Needle Operator Name: Delivery Method: HAND - Hand Delivered Rosangela Days: Prior Verbal Notification: Recipient Understood Notice: Yes Recipient Signature: Yes Med Rec Note Co-signed by Attending: Coverage Notice Comment: DAYA Signed for [facility] Inpatient Rehab and [facility] (Current provider). Reviewer: [email or web address] Cam Keita Notice Issued Date-Time: 08/11/2019 18:55 Notice Type: Medicare Outpatient Observation Notice Notice Delivered To: Patient Relationship to Patient: Electrolysis Needle Operator Name: Delivery Method: HAND - Hand Delivered Rosangela Days: Prior Verbal Notification: Recipient Understood Notice: Yes Recipient Signature: Yes Med Rec Note Co-signed by Attending: Coverage Notice Comment: SURESH delivered, explained, signed by the patient, and placed in the chart. Signed form also left with patient. Kennedi Keita RN , CCM Last DP export: 08/12/19 1:36 pm Patient Name: Emiliana FUENTESMICHELLE Page 48162 at 1947 All edits/amendments must be made on the electronic document DICTATION DATE: 08/12/191945 CNC MAINTENANCE MECHANIC: KALPESH 08/12/191945 RPT#: [id number] DC DATE:08/12/19 STATUS: DIS IN [facility] [address] [place] [address] END OF REPORT
== END 2019-08-12 18:19 ==
LOC: D.MS 15:32 → OBSVTIME 15:33 → D.MS 08-12 18:19
PROVIDERS: Emergency Medicine; ADMIT Family Medicine; ATTEND Family Medicine
DX: R53.1 Weakness (principal); Z47.1 Aftercare following joint replacement surgery; Z96.652 Presence of left artificial knee joint; M19.90 Unspecified osteoarthritis, unspecified site; E03.9 Hypothyroidism, unspecified; I10 Essential (primary) hypertension; G62.9 Polyneuropathy, unspecified; G89.29 Other chronic pain

== ENCOUNTER 2019-08-12 19:19 | Inpatient (IN) | payer MEDICARE, BC ==
[~2019-08-12] VITALS: Ht 152.4 cm; Wt 79.4 kg
[~2019-08-12 19:19] MED LIST changes: +BAYER ASPIRIN325 MG PO; +HCTZ25 MG PO; +PERCOCET 7.5/321 TAB PO; +PROTONIX40 MG PO
[2019-08-12 19:45] VITALS: BP 140/65
--- NOTE | 2019-08-12 20:00 | NUR ---
PATIENT RECEIVED SITTING UP IN BED. ASSESSMENT DONE BY CHARGE NURSE. VITAL SIGNS DONE. BED LOW. CALL LIGHT WITHIN REACH. WILL CONTINUE TO MONITOR.
[2019-08-12 22:45] VITALS: BP 140/65; BMI 34.2
--- NOTE | 2019-08-13 03:39 | NUR ---
PATIENT EYES CLOSED. RESPIRATIONS 18 & EVEN. BED LOW. ALARM ON. CALL LIGHT WITHIN REACH.WILL CONTINUE TO MONITOR.
[2019-08-13 06:30] LABS: BASOPHILS 0.2 % (0-2); EOSINOPHILS 5.4 % (0-7); HEMATOCRIT 27.5 % (36.0-48.0); HEMOGLOBIN 8.4 g/dL (12-16); IMMATURE GRANULOCYTES 0.2 % (0-5); LYMPHOCYTES 16.9 % (15-50); MCH 25.5 pg (26.0-34.0); MCHC 30.5 g/dL (31.0-37.0); MCV 83.3 fL (80.0-100.0); MEAN PLATELET VOLUME 10.3 fL (7.4-10.4); MONOCYTES 7.9 % (2-11); NEUTROPHILS 69.4 % (40-80); PLATELET COUNT 275 10x3/uL (130-400); RDW 15.4 % (11.5-14.5); WBC 6.1 10x3/uL (4.8-10.8)
[2019-08-13 07:02] LABS: CALC OSMOLALITY 293 mosm/kg (275-300); CALCIUM 8.5 mg/dL (8.5-10.1); CARBON DIOXIDE 30.9 mmol/L (21.0-32.0); CHLORIDE - SERUM 108 mmol/L (98-107); CREATININE - SERUM 0.5 mg/dL (0.6-1.3); GLUCOSE 95 mg/dL (74-106); POTASSIUM - SERUM 4.1 mmol/L (3.5-5.1); SODIUM 146 mmol/L (136-145); UREA NITROGEN 20 mg/dL (7-18); eGFR NON AFRICAN AMERICAN > 90 mL/min (90-120)
[2019-08-13 07:59] VITALS: BP 149/60
--- NOTE | 2019-08-13 10:43 | NUR ---
SITTING IN WC IN ROOM. LEFT KNEE HAS BORDER DSG COVERING KNEE INCISION. PAIN MEDS ORDERED AND GIVEN DIRECTED. PEDAL PULSES PRESENT X2. LEFT KNEE HAS 4+ EDEMA TO IT. CALL LIGHT IN REACH
[2019-08-13 12:55] VITALS: Ht 152.4 cm; Wt 79.4 kg
--- NOTE | 2019-08-13 13:06 | NUR ---
SITTING UP IN WC IN ROOM. LLE ELEVATED. ICE PACK ON LEFT KNEE. CALL LIGHT IN REACH
--- NOTE | 2019-08-13 17:36 | NUR ---
JIMENEZ AREA RED AND TENDER. LOOKED CHAPPED. BUTT PASTE APPLIED. RT KNEE INCISION IS CLOSED WITH LOLITA. THEY ARE OPEN TO AIR. SMALL AMT OF REDNESS ON INCISION SITE. SCANT DRAINAGE NOTED.
[2019-08-13 19:00] VITALS: BP 119/48
--- NOTE | 2019-08-13 19:30 | NUR ---
PT SITTING UP IN BED. RESTING QUIETLY. EYES CLOSED. BED IN LOW SIDE RAILS X2. CL IN REACH. NO DISTRES NOTED. RESP EVEN AND UNLABORED. LUNGS CLEAR. BOWEL ACTIVE X4. LEFT KNEE HAS LOLITA OPEN TO AIR. WILL CONTINUE TO MONITOR.
--- NOTE | 2019-08-14 03:15 | NUR ---
ASSISTED TO AND FROM BATHROOM. CL IN REACH. PT BACK IN BED. DENIES FURTHER NEEDS. WCTM
--- NOTE | 2019-08-14 03:53 | NUR ---
I have reviewed this patient and I concur with the Shift Assessment completed by the Licensed Practical Nurse today this shift.
--- NOTE | 2019-08-14 07:49 | NUR ---
REPORT RECEIVED. WILL CONTINUE WITH POC. PT CURRRENTLY LYING SEMI FOWLERS. CALL LIGHT W/I REACH. PT IS AAO AND UP WITH ASSIST. RR EVEN AND UNLABORED ON RA. NO PIV NOTED. NO S/S OF DISTRESS NOTED. WILL CTM.
[2019-08-14 08:47] VITALS: BP 126/87
--- NOTE | 2019-08-14 09:14 | NUR ---
PATIENT ADMITTED TO REHAB FROM ACUTE FLOOR. DR. RAMACHANDRAN IS PATIENT PCPC. DME AT HOME IS A BEDSIDE COMMODE, NEBULIZER AND A ROLLING WALKER. DISCHARGE PLANS ARE FOR PATIENT TO RETURN HOME WITH HER FAMILY. WILL CONTINUE TO FOLLOW WITH PATIENT.
--- NOTE | 2019-08-14 09:16 | NUR ---
PATIENT ALSO HAS A WHEELCHAIR AT HOME.
--- NOTE | 2019-08-14 14:30 | NUR ---
I have reviewed this patient and I concur with the Shift Assessment completed by the Licensed Practical Nurse today this shift.
--- NOTE | 2019-08-14 16:43 | NUR ---
PT ASSISTED TO AND FROM BATHROOM VIA WHEELCHAIR AND MINIMAL ASSIST. PT VOIDED APPROX 250ML OF PALE YELLOW URINE. PT REQUESTED TO SIT UP IN WHEELCHAIR FOR DINNER. CALL LIGHT W/I REACH. WILL CTM.
--- NOTE | 2019-08-14 19:25 | NUR ---
GREETED PATIENT AND INTRODUCED MYSELF HER NURSE. PATIENT IS LAYING IN BED WATCHING TV AT THIS TIME. RESPIRATIONS EVEN. NO S/S OF DISTRESS. CALL LIGHT IN REACH. DENIES ANY NEEDS AT THIS TIME.
[2019-08-14 19:30] VITALS: BP 112/59
--- NOTE | 2019-08-15 00:37 | NUR ---
ASSISTED PATIENT TO BATHROOM USING WHEELCHAIR. BACK TO BED AND REPOSITIONED FOR COMFORT. INCISION CLEANED WITH SAFE CLENS. NO DRAINAGE, INCISION IS RED BUT NOT WARM TO TOUCH. ICE PACK APPLIED TO INCISION FOR COMFORT. WCTM. CALL LIGHT IN REACH.
--- NOTE | 2019-08-15 01:21 | NUR ---
PT. RESTING QUIETLY WITH EYES CLOSED. RESPIRATIONS EVEN. NO S/S OF DISTRESS. ICE PACK ON LEFT KNEE FOR COMFORT. CALL LIGHT IN REACH.
[2019-08-15 07:56] LABS: BASOPHILS 0.4 % (0-2); EOSINOPHILS 5.3 % (0-7); HEMATOCRIT 27.7 % (36.0-48.0); HEMOGLOBIN 8.3 g/dL (12-16); IMMATURE GRANULOCYTES 0.4 % (0-5); LYMPHOCYTES 21.2 % (15-50); MCH 25.2 pg (26.0-34.0); MCV 83.9 fL (80.0-100.0); MEAN PLATELET VOLUME 10.1 fL (7.4-10.4); MONOCYTES 9.3 % (2-11); NEUTROPHILS 63.4 % (40-80); PLATELET COUNT 294 10x3/uL (130-400); RDW 15.3 % (11.5-14.5); WBC 5.5 10x3/uL (4.8-10.8)
[2019-08-15 08:00] VITALS: BP 137/56
[2019-08-15 08:15] LABS: CALC OSMOLALITY 288 mosm/kg (275-300); CARBON DIOXIDE 33.1 mmol/L (21.0-32.0); CHLORIDE - SERUM 103 mmol/L (98-107); CREATININE - SERUM 0.6 mg/dL (0.6-1.3); GLUCOSE 93 mg/dL (74-106); POTASSIUM - SERUM 4.4 mmol/L (3.5-5.1); SODIUM 143 mmol/L (136-145); UREA NITROGEN 23 mg/dL (7-18); eGFR NON AFRICAN AMERICAN > 90 mL/min (90-120)
--- NOTE | 2019-08-15 08:53 | NUR ---
NUTRITION F/U PT UP TO CHAIR FOR BREAKFAST. 100% INTAKE DIABETIC DIET. RECENT BM RECORDED THIS AM. WILL CONTINUE TO PROVIDE DIET, MONITOR PO INTAKE. RD FOLLOWING
--- NOTE | 2019-08-15 16:49 | NUR ---
CARE TEAM MEETING: PATIENT IS NEW TO UNIT AND WILL BE RA AT NEXT MEETING. WILL CONTINUE TO FOLLOW WITH PATIENT.
--- NOTE | 2019-08-15 19:20 | NUR ---
PT SITTING UP IN BED WATCHING TV. CL IN REACH. DENIES NEEDS AT THIS TIME. BED IN LOW SIDE RAILS X2. LUNGS CLEAR. BOWEL ACTIVE X4. A/O X4. RESP EVEN AND UNLABORED. LEFT KNEE TRAIN CONTROLLER WITH LOLITA INTACT. WILL CONTINUE TO MONITOR.
[2019-08-15 20:06] VITALS: BP 107/41
--- NOTE | 2019-08-15 20:41 | NUR ---
SHIFT ASSMT COMPLETED.
--- NOTE | 2019-08-16 00:46 | NUR ---
I have reviewed this patient and I concur with the Shift Assessment completed by the Licensed Practical Nurse today this shift.
[2019-08-16 08:41] VITALS: BP 134/60
--- NOTE | 2019-08-16 09:00 | NUR ---
UP IN CHAIR, ALERT, C/O PAIN LEFT KNEE, AM MEDS WITH PAIN MEDS FOR A LEVEL 7 GIVEN. V/S TAKEN. WCTM.
--- NOTE | 2019-08-16 18:22 | NUR ---
OOB AND PT THIS AM. OOB AND VISITING FAMILY THIS PM. TRANSFERS AND WALKING BECOMING EASIER. GROIN AREA AND UPPER THIGHS EXCORIATED. CLEANED AND BUTT PASTE APPLIED. STATES "FEELS BETTER." WILL CONTINUE TO MONITOR.
[2019-08-16 19:44] VITALS: BP 107/54
--- NOTE | 2019-08-16 20:00 | NUR ---
PATIENT RECEIVED SITTING UP IN WHEELCHAIR. ASSESSMENT & VITAL SIGNS DONE. FAMILY IN ROOM. CALL LIGHT WITHIN REACH. WILL CONTINUE TO MONITOR.
--- NOTE | 2019-08-17 00:25 | NUR ---
I have reviewed this patient and I concur with the Shift Assessment completed by the Licensed Practical Nurse today this shift.
--- NOTE | 2019-08-17 02:28 | NUR ---
PATIENT USED CALL LIGHT FOR ASSIST. PATIENT MOD ASSIST INTO WHEELCHAIR & ONTO TOILET. PATIENT RETURNED TO BED WITH MOD ASSIST. BED LOW. CALL LIGHT WITHIN REACH. WILL CONTINUE TO MONITOR.
[2019-08-17 08:07] VITALS: BP 144/66
[2019-08-17 08:12] LABS: BASOPHILS 0.3 % (0-2); EOSINOPHILS 3.5 % (0-7); HEMATOCRIT 30.5 % (36.0-48.0); HEMOGLOBIN 9.4 g/dL (12-16); LYMPHOCYTES 22.1 % (15-50); MCH 25.8 pg (26.0-34.0); MCHC 30.8 g/dL (31.0-37.0); MCV 83.6 fL (80.0-100.0); MONOCYTES 10.4 % (2-11); NEUTROPHILS 63.7 % (40-80); PLATELET COUNT 331 10x3/uL (130-400); RBC 3.65 10x6/uL (4.00-5.40); RDW 15.2 % (11.5-14.5)
[2019-08-17 08:22] LABS: CALC OSMOLALITY 293 mosm/kg (275-300); CALCIUM 9.4 mg/dL (8.5-10.1); CARBON DIOXIDE 34.3 mmol/L (21.0-32.0); CHLORIDE - SERUM 105 mmol/L (98-107); CREATININE - SERUM 0.7 mg/dL (0.6-1.3); GLUCOSE 96 mg/dL (74-106); POTASSIUM - SERUM 4.6 mmol/L (3.5-5.1); SODIUM 144 mmol/L (136-145); UREA NITROGEN 32 mg/dL (7-18); eGFR NON AFRICAN AMERICAN 86 mL/min (90-120)
--- NOTE | 2019-08-17 10:32 | NUR ---
SITTING IN WC IN THERAPY GYM. UP WITH MOD ASST. LEFT KNEE INCISIN IS OPEN TO AIR. LOLITA NOTED TO INCISION. SKIN AROUND LOLITA IS SLIGHTLY RED AND DRY. NO DRAINAGE NOTED. LLE HAS 4+ EDEMA NOTED.
--- NOTE | 2019-08-17 13:37 | NUR ---
NUTRITION FOLLOW UP INTERVIEW: Attempted to talk with patient. Family member and patient in the room were asleep. Patient has been eating well. DIET: Regular Diet- Ensure with Meals PO INTAKE: 80% avg x 9 meals WT: 175 lbs (pt with 4+ edema noted) BM: x 1 on 08/16 SIG MEDS: Protonix, others noted SIG LABS: Labs reviewed WILL CONTINUE TO MONITOR CLOSELY [facility] CLINICAL DIETITIAN FOLLOWING
--- NOTE | 2019-08-17 19:28 | NUR ---
PT IS UP IN WC IN THE GYM VISITING WITH FAMILY AND ANOTHER PT. ALERT AND ORIENTED X 3. DENIES ACUTE PAIN OR DISCOMFORT AT THIS TIME. NO NEEDS VOICED.
[2019-08-17 20:34] VITALS: BP 106/51
--- NOTE | 2019-08-17 22:30 | NUR ---
PT RESTING IN RECLINER. NO NEEDS VOICED.
--- NOTE | 2019-08-18 00:28 | NUR ---
I have reviewed this patient and I concur with the Shift Assessment completed by the Licensed Practical Nurse today this shift.
--- NOTE | 2019-08-18 03:06 | NUR ---
PT ASSISTED TO THE BATHROOM WITH MOD ASSIST FOR TRANSFERS. SBA FOR TOILETING.
--- NOTE | 2019-08-18 05:43 | NUR ---
PT RESTING IN BED WITH EYES CLOSED. AWOKE EASILY TO VERBAL STIMULI. TOLERATED AM MED WITHOUT DIFFICULTY. NO FURTHER NEEDS VOICED.
--- NOTE | 2019-08-18 08:15 | NUR ---
PT UP IN CHAIR EATING BREAKFAST CALL LIGHT IN REACH TOLERATING WELL WILL MONITER
--- NOTE | 2019-08-18 08:30 | NUR ---
PT REQUESTED COFFEE AND BATHROOM
--- NOTE | 2019-08-18 09:15 | NUR ---
PT ASSISTED BACK TO BED CALL LIGHT IN REACH WILL MONITER
--- NOTE | 2019-08-18 10:30 | NUR ---
PT UP TO BATHROOM WITH ASSIST PT VOIDED TOLERATED WELL
--- NOTE | 2019-08-18 11:00 | NUR ---
PT ASSISTED SELF TO BATHROOM WAS INSTRUCTED AGAIN TO CALL FOR HELP. PT REQUEST SHE GET A SHOWER NOW BECAUSE SHE FELT LIKE SHE SMELLED LIKE URINE. PT HELPED IN TO SHOWER AND SET UP. INSTRUCTED TO PULL LIGHT WHEN FINISHED.
--- NOTE | 2019-08-18 11:40 | NUR ---
PT FINISHED WITH SHOWER REQUESTING ZAHEER TO BE PUT BETWEEN LEGS INNER THIGHS WHERE EXORIATED FROM RUBBING TOGETHER. PT ASSISTED WITH CLOTHING ASSISTED BACK TO WHEELCHAIR. PT WANTED TO BRUSH TEETH. PT INSTRUCTED TO DO SO AT THE SINK. PT DID NOT REALLY LIKE THE IDEAL OF USING THE SINK. I EXPLAINED WE WANT PTS TO DO MUCH THEY CAN BY THERE SELF TO BE ABLE TO BE SELF SUFFICENT WHEN GOING HOME. PT FAMILY IS IN ROOM WITH PT WHILE SHE IS AT THE SINK
--- NOTE | 2019-08-18 16:57 | NUR ---
I have reviewed this patient and I concur with the Shift Assessment completed by the Licensed Practical Nurse today this shift.
[2019-08-18 18:36] VITALS: BP 123/54
--- NOTE | 2019-08-18 19:21 | NUR ---
GREETED PATIENT AND INTRODUCED MYSELF HER NURSE. PATIENT IS LAYING IN BED VISITING WITH FAMILY MEMBERS AT BEDSIDE. ADMINISTERED PRN PAIN MEDICATION FOR PAIN STATED 5/10 IN LEFT KNEE. CALL LIGHT IN REACH.
[2019-08-18 19:45] VITALS: BP 131/54
--- NOTE | 2019-08-18 21:52 | NUR ---
PT. ASSISTED TO BATHROOM. BACK TO RECLINER TO REST. PT. STATES THAT SHE WANTS TO TRY AND SLEEP IN THE RECLINER FOR A WHILE. WCTM. CALL LIGHT IN REACH.
--- NOTE | 2019-08-18 22:25 | NUR ---
PT. RESTING QUIETLY WITH EYES CLOSED SITTING IN RECLINER. RESPIRATIONS EVEN. NO S/S OF DISTRESS. CALL LIGHT IN REACH.
--- NOTE | 2019-08-19 01:46 | NUR ---
PT. RESTING QUIETLY WITH EYES CLOSED SITTING IN RECLINER WITH LEGS ELEVATED. RESPIRATIONS EVEN. NO S/S OF DISTRESS. CALL LIGHT IN REACH.
--- NOTE | 2019-08-19 08:00 | NUR ---
SHIFT ASSMT COMPLETED.
[2019-08-19 08:15] VITALS: BP 116/53
--- NOTE | 2019-08-19 12:00 | NUR ---
UP IN CHAIR EATING LUNCH.
--- NOTE | 2019-08-19 19:15 | NUR ---
GREETED PATIENT AND INTRODUCED MYSELF HER NURSE. PT. SITTING IN RECLINER WITH LEGS ELEVATED WATCHING TV. STATES PAIN LEVEL IN LEFT KNEE IS 6/10. AOX4. RESPIRATIONS EVEN. NO S/S OF DISTRESS. CALL LIGHT IN REACH.
[2019-08-19 19:30] VITALS: BP 129/51
--- NOTE | 2019-08-19 20:30 | NUR ---
ASSISTED PATIENT TO RECLINER FROM WHEELCHAIR. LEGS ELEVATED. CALL LIGHT IN REACH.
--- NOTE | 2019-08-19 23:28 | NUR ---
PT. RESTING QUIETLY IN BED WATCHING TV. RESPIRATIONS EVEN. NO S/S OF DISTRESS. CALL LIGHT IN REACH.
--- NOTE | 2019-08-20 01:06 | NUR ---
PT. RESTING QUIETLY WITH EYES CLOSED. LEGS ELEVATED FOR COMFORT. RESPIRATIONS EVEN. NO S/S OF DISTRESS. CALL LIGHT IN REACH. SR UP X 2. BED IN LOWEST POSITION.
[2019-08-20 07:11] LABS: BASOPHILS 0.4 % (0-2); EOSINOPHILS 4.1 % (0-7); HEMATOCRIT 28.4 % (36.0-48.0); HEMOGLOBIN 8.6 g/dL (12-16); IMMATURE GRANULOCYTES 0.2 % (0-5); LYMPHOCYTES 20.9 % (15-50); MCH 25.4 pg (26.0-34.0); MCHC 30.3 g/dL (31.0-37.0); MCV 83.8 fL (80.0-100.0); MEAN PLATELET VOLUME 9.8 fL (7.4-10.4); MONOCYTES 9.6 % (2-11); NEUTROPHILS 64.8 % (40-80); PLATELET COUNT 332 10x3/uL (130-400); RDW 15.1 % (11.5-14.5); WBC 5.1 10x3/uL (4.8-10.8)
[2019-08-20 07:20] LABS: ANION GAP 8.5 mmol/L (8-16); CALCIUM 9.1 mg/dL (8.5-10.1); CREATININE - SERUM 0.8 mg/dL (0.6-1.3); POTASSIUM - SERUM 4.5 mmol/L (3.5-5.1)
--- NOTE | 2019-08-20 15:23 | RHP ---
PATIENT: SAMIR GUADALUPE MEDICAL RECORD: [id number] ACCOUNT: [id number] [id number] ADMISSION DATE: 08/12/19 REHABILITATION HISTORY AND PHYSICAL EXAMINATION POST ADMISSION PHYSICIAN EXAMINATION ADMITTING DIAGNOSIS: Complications of joint placement. HISTORY OF PRESENT ILLNESS: The patient is a 73-year-old female patient who was discharged home after recent left knee replacement, it was not been responding very well to home therapy and continued to get weaker, had an H&H of 8.8 and 26.8 on 08/12/2019. She was admitted to the hospital for placement for acute rehabilitation. Previously, she lived with her , was independent with ADLs and mobility. Currently, she is mod to max assist for sit to stand and bed to chair. She needs assistance with getting back her balance and safety in walking and so she can return back home to her prior level of functioning. COMORBIDITIES: In this patient include COPD, depression, hypertension, hypothyroidism, failed outpatient therapy. PAST MEDICAL HISTORY: Significant for neuropathy. She got a history of thyroid problems, got a history of ulcers, arthritis, chronic back pain, joint replacement, and depression. PAST SURGICAL HISTORY: Includes knee surgery. She has had foot, arm and extremity surgery and oophorectomy, partial surgery on her right foot and lumbar stabilization. ALLERGIES: SULFA. CURRENT MEDICATIONS: Include hydrochlorothiazide, she is on 12.5 mg daily; lisinopril 20 mg daily; aspirin 325 mg daily. She is on an electrolyte protocol at this time. She is on Protonix 40 mg daily, polyethylene glycol 17 grams in 8 ounces of water daily, Percocet 5/325 one tab q.6 hours p.r.n. She is on Neurontin 300 mg t.i.d. She is on Cardura 4 mg b.i.d. and she is on Omnicef 300 mg b.i.d. HABITS: No alcohol or tobacco use. FAMILY HISTORY: Noncontributory. SOCIAL HISTORY: The patient hopes to return back home and get back to her prior level of functioning. REVIEW OF SYSTEMS: GENERAL: Does complain of weakness and fatigue. HEENT: Denies cold, cough, or congestion. CARDIOVASCULAR: Denies chest pain. PHYSICAL EXAMINATION: VITAL SIGNS: Stable, afebrile. GENERAL: A somewhat obese female, in no distress, alert upon exam. HEENT: Normocephalic and atraumatic. Mucosa moist. NECK: Supple. No lymphadenopathy. LUNGS: Clear at this time. No wheezing, rhonchi, or rales. HISTORY AND PHYSICAL [id number] SAMIR GUADALUPE HEART: Regular rate and rhythm. No murmurs, rubs or gallops. ABDOMEN: Soft, benign, and nondistended. Positive bowel sounds times 4. EXTREMITIES: No clubbing, cyanosis or edema. She does have normal-appearing postop swelling from her knee. NEUROLOGIC: She does have proximal muscle weakness in her thighs with 3/5 strength. LABORATORY DATA: White count 6.1, H&H 8.4 and 27.5, and platelet count is 275. Sodium 146, potassium 4.1, BUN and creatinine of 20 and 0.5, and blood sugar is noted to be 95. ASSESSMENT: This is a 73-year-old female patient admitted to rehab with a working diagnosis of debility secondary to knee replacement, failed outpatient physical therapy. The patient has potential to make improvement. We instituted the following multidisciplinary therapies include, but not limited to physical, occupational, respiratory, speech, nutritional services, prosthetics and orthotics. Given her complex medical condition and risk for more complications, rehabilitation services cannot be provided at a low level of care such a skilled nurse facility. PLAN: 1. [facility] to include the following disciplines: A. Physical therapy to improve gait, all transfer skills and bed mobility to a modified independent level. B. Occupational therapy to improve the activities of daily living to a daily level. C. Case management to assist with discharge planning and placement options. D. Nutrition to assist with nutritional needs. E. Rehabilitation nursing to assist in monitoring the patient's underlying medical conditions and to assist with any type of bowel or bladder management. 2. The patient's current medication and medical care will be continued. 3. The patient will be placed on standard fall precautions. 4. We will watch her H&H closely and transfuse if needed. 5. We will consider starting on anticoagulation if she is not improving quickly with PT. TRANSINT:[id number] Voice Confirmation ID: [id number] DOCUMENT ID: [id number] MAGAN notes whether there has been none or any medical/functional change since admission: - No change since preadmission screen. MAGAN attests patient continues to be appropriate for IRF: - Continues to be appropriate. HISTORY AND PHYSICAL [id number] SAMIR GUADALUPE,LAKIA VILLAFANA MD at 1523 CC: [id number] DICTATION DATE: 08/13/19 0843 ENGINEERING PROFESSOR: 08/13/19 1034 ADM IN [place] [id number] [place] [phone]
[2019-08-20 18:52] VITALS: BP 150/86
[2019-08-20 19:40] VITALS: BP 143/78
--- NOTE | 2019-08-20 19:40 | NUR ---
BEDSIDE REPORT COMPLETE. PT SITTING UP IN CHAIR VISITING WITH FAMILY. DENIES ANY NEEDS OR PAIN. NO SIGNS OF ACUTE DISTRESS NOTED. VS STABLE. SHIFT ASSESSMENT COMPLETE. CL IN REACH. FALL PRECAUTIONS IN PLACE. WILL CONTINUE TO MONITOR
--- NOTE | 2019-08-21 00:41 | NUR ---
QUIET HOURS. PT LYING IN BED EYES CLOSED RESTING COMFORTABLY. RR EVEN AND UNLABORED. CL IN REACH
--- NOTE | 2019-08-21 04:11 | NUR ---
PT LYING IN BED EYES CLOSED RESTING COMFORTABLY. RR EVEN AND UNLABORED. CL IN REACH
--- NOTE | 2019-08-21 06:24 | NUR ---
SITTING UP IN RECLINER WATCHING MORNING NEWS. DENIES ANY NEEDS.
--- NOTE | 2019-08-21 07:11 | NUR ---
GREETED PATIENT AND INTRODUCED MYSELF HER NURSE. PATIENT IS SITTING IN RECLINER WATCHING TV AT THIS TIME. STATES THAT PAIN IS 4/10 IN LEFT LEG AT THIS TIME. RESPIRATIONS EVEN. NO S/S OF DISTRESS. CALL LIGHT IN REACH.
[2019-08-21 08:18] VITALS: BP 119/56
--- NOTE | 2019-08-21 14:34 | NUR ---
PT. IN THERAPY AT THIS TIME.
--- NOTE | 2019-08-21 14:49 | NUR ---
Nutrition Follow-up: Diet: Regular + Ensure with meals PO intake: ~86% average x last 9 meals. Reports that her appetite is "fine." States that she is drinking Ensure. Last BM: 08/18/19 x 2. WT: 175# (08/13/19), no new wt Meds, labs, and skin assessment reviewed Recommend continue current diet and oral nutrition supplements. RD following.
--- NOTE | 2019-08-21 19:35 | NUR ---
BEDSIDE REPORT COMPLETE. PT SITTING UP IN RECLINER VISITING WITH FAMILY. NO SIGNS OF ACUTE DISTRESS NOTED. DENIES ANY NEEDS OR PAIN. VS STABLE. SHIFT ASSESSMENT COMPLETE. CL IN REACH. FALL PRECAUTIONS IN PLACE. WILL CONTINUE TO MONITOR
[2019-08-21 19:49] VITALS: BP 109/53
--- NOTE | 2019-08-22 00:35 | NUR ---
QUIET HOURS. PT LYING IN BED EYES CLOSED RESTING COMFORTABLY. RR EVEN AND UNLABORED. CL IN REACH
--- NOTE | 2019-08-22 05:07 | NUR ---
PT LYING IN BED EYES CLOSED RESTING. RR EVEN AND UNLABORED. CL IN REACH
--- NOTE | 2019-08-22 05:45 | NUR ---
ASSISTED PT TO RESTROOM. PT SITTING UP IN RECLINER. DENIES ANY NEEDS.
[2019-08-22 07:46] LABS: BASOPHILS 0.2 % (0-2); EOSINOPHILS 5.6 % (0-7); HEMATOCRIT 28.1 % (36.0-48.0); HEMOGLOBIN 8.6 g/dL (12-16); IMMATURE GRANULOCYTES 0.2 % (0-5); LYMPHOCYTES 17.2 % (15-50); MCH 25.6 pg (26.0-34.0); MCHC 30.6 g/dL (31.0-37.0); MCV 83.6 fL (80.0-100.0); MONOCYTES 10.1 % (2-11); NEUTROPHILS 66.7 % (40-80); PLATELET COUNT 354 10x3/uL (130-400); RBC 3.36 10x6/uL (4.00-5.40); RDW 15.2 % (11.5-14.5); WBC 5.2 10x3/uL (4.8-10.8)
[2019-08-22 07:58] LABS: ANION GAP 9.1 mmol/L (8-16); CARBON DIOXIDE 34.9 mmol/L (21.0-32.0); CREATININE - SERUM 0.8 mg/dL (0.6-1.3)
[2019-08-22 08:00] VITALS: BP 140/60
[2019-08-22 19:30] VITALS: BP 142/67
--- NOTE | 2019-08-22 19:45 | NUR ---
GREETED PATIENT AND INTRODUCED MYSELF HER NURSE. ASSISTED PATIENT TO BATHROOM USING WALKER. RESPIRATIONS EVEN. NO S/S OF DISTRESS. CALL LIGHT IN REACH.
--- NOTE | 2019-08-23 02:07 | NUR ---
PT. RESTING QUIETLY WITH EYES CLOSED. RESPIRATIONS EVEN. NO S/S OF DISTRESS. CALL LIGHT IN REACH. LEGS ELEVATED TO HELP WITH SWELLING.
--- NOTE | 2019-08-23 07:30 | NUR ---
A/A/OX4. RESTING QUIETLY IN BED WITHOUT ANY C/O PAIN OR REQUESTS. ASSESSMENT COMPLETED AND WILL CONTINUE POC. CALL LIGHT IN REACH AND BED IN LOW POSITION.
[2019-08-23 08:09] VITALS: BP 117/60
[2019-08-23] MEDS ORDERED: HYDROCODON-ACE1 EA10 PO (08:43)
[2019-08-23] MEDS ORDERED: XANAX0.25 MG PO (08:44)
--- NOTE | 2019-08-23 09:41 | NUR ---
PATIENT DISCHARGING HOME TODAY WITH FAMILY. [facility] WILL PROVIDE THERAPY AT HOME. PATIENT CHOICE FORM FOR HOME HEALTH WITH COMPARE DATA REVIEWED WITH PATIENT AND SHE VOICED UNDERSTANDING.NO NEW DME NEEDED AT THIS TIME. DR. RAMACHANDRAN 08/28/2019 @ 10:15, /VERÓNICA HOOD 08/24/2019 @ 9:30. [facility] FORM SIGNED, COPY FILED IN CHART AND ONE GIVEN TO PATIENT. DISCHARGE INSTRUCTIONS FAXED TO PCP, HOME HEALTH AND REVIEWED WITH PATIENT.
--- NOTE | 2019-08-23 11:30 | NUR ---
I have reviewed this patient and I concur with the Shift Assessment completed by the Licensed Practical Nurse today this shift.
--- NOTE | 2019-08-23 12:08 | NUR ---
DISCHARGE INSTRUCTIONS REVIEWED WITH PT AND VERBALIZES UNDERSTANDING WITHOUT QUESTIONS. PRESCRIPTION FOR ZESTORETIC AND PROTONIX CALLED TO [facility]. PT LEFT FLOOR VIA W/C WITH ALL PERSONAL BELONGINGS AND LEFT FACILITY VIA PRIVATE CAR WITH AND DAUGHTER.
== END 2019-08-23 12:15 | disposition home health service (06) | DRG 948 ==
LOC: D.REHAB 19:19
PROVIDERS: ADMIT Emergency Medicine; ATTEND Emergency Medicine
DX: R53.81 Other malaise (principal); T84.9XXD Unspecified complication of internal orthopedic prosthetic device, implant and graft, subsequent encounter; J44.9 Chronic obstructive pulmonary disease, unspecified; I10 Essential (primary) hypertension; E03.9 Hypothyroidism, unspecified; F32.9 Major depressive disorder, single episode, unspecified; Z96.652 Presence of left artificial knee joint; G62.9 Polyneuropathy, unspecified; M19.90 Unspecified osteoarthritis, unspecified site; G89.29 Other chronic pain

== ENCOUNTER → 2021-01-27 09:10 | Outpatient (CLI) | payer MEDICARE, BC ==
[2019-08-13 12:55] VITALS: BMI 34.1
[~2021-01-27 09:10] MED LIST changes: +HYDROCODON-ACE1 EA10 PO; +XANAX0.25 MG PO
--- NOTE | 2021-01-28 13:44 | EC ---
PATIENT:SAMIR GUADALUPE DATE OF SERVICE: 01/27/21 SEX: F MEDICAL RECORD: [id number] DATE OF : 41 LOCATION:[facility] AGE OF PATIENT: 75 ADMISSION DATE: 01/27/21 REFERRING PHYSICIAN: INTERPRETING PHYSICIAN: GABRIELA LEON MD ECHOCARDIOGRAM REPORT ECHO CHARGES 4 ECHO COMPLETE Date: 01/27/21 CLINICAL DIAGNOSIS: EDEMA ECHOCARDIOGRAPHIC MEASUREMENTS (adult normal given) AC root (d.<3.7cm) 3.0 cm LV Septum d (<1.2 cm> 1.1 cm Valve Excursion 1.4 cm LV Septum (systole) 1.2 cm Left Atria (s.<4.0cm> 4.8 cm LVPW d(<1.2cm) 1.0 cm RV (d.<2.3cm) 3.0 cm LVPW (sytole) 1.4 cm LV diastole(<5.6CM) 5.0 cm MV E-F(>70mm/sec) cm LV systole 3.5 cm LVOT Diameter 1.5 cm MV exc.(>10mm) 1.4 cm Est.ejection fraction (50-75%) % DOPPLER: LVIT cm/sec A 90 cm/sec E 106 cm/sec LA cm/sec RVSP 37 mmHg LVOT 89 cm/sec AOP1/2T m/s Asc. Ao 156 cm/sec RVOT 51 cm/sec RA cm/sec PA 75 cm/sec AV Gradient Peak 9.7 mmHg AV Mean 4.5 mmHg AV Area 1.1 cm MV Gradient Peak 6.8 mmHg MV Mean 2.5 mmHg MV Area cm COMMENTS: Sand Temperer: Esteban BAUTISTA Auto Inspection Specialist: 2 Dr. Rosa TAPE# Pericardial Effusion N DATE OF SERVICE: 01/27/2021 CLINICAL DIAGNOSIS: Edema. INTERPRETATION: Normal left ventricular chamber size and contractile function with ejection fraction 55-60%. Left atrial chamber mildly dilated. Right atrium and right ventricular chamber size and function appears normal. Aortic valve appears normal. Trace to mild aortic regurgitation. Mitral valve appears normal. Mild mitral regurgitation. Tricuspid valve appears normal. Mild tricuspid regurgitation. Pulmonic valve not well visualized. No pulmonary ECHOCARDIOGRAM REPORT [id number] SAMIR GUADALUPE regurgitation noted. No pericardial effusion visualized. IMPRESSION: Normal left ventricular chamber size and contractile function, ejection fraction of 55- 60%. TRANSINT:[id number] Voice Confirmation ID: [id number] DOCUMENT ID: [id number] GABRIELA LEON MD at 1344 CC: [id number] DICTATION DATE: 01/27/21 1608 ROD PLACER: 01/27/21 1839 DEP CLI 01/27/21 [facility] [address] [place] [phone]
== END | disposition home or self-care (01) ==
LOC: D.ECHO 09:00
PROVIDERS: ATTEND Family Medicine
DX: R60.0 Localized edema (principal); E04.1 Nontoxic single thyroid nodule